=== PATIENT | female | born 1950 | race Caucasian/White ===

== ENCOUNTER 2017-09-29 11:21 | Inpatient (IN) | payer MEDICARE, OTHER ==
[2017-09-29] VITALS (21 sets, daily range): BP systolic 97–127; BP diastolic 49–66
[~2017-09-29] VITALS: Ht 167.6 cm; Wt 56.3 kg
[~2017-09-29 11:21] MED LIST: AMBR5TAB3 PO; ASPI-1265 PO; BECL8.7A7 IH; BUSP10TA11 PO; DULO60CA64 PO; FURO-149 PO; LORA2TAB PO; POTA10TA19 PO; TADA20TA31 PO; UMEC1DIS ID
[2017-09-29] MEDS ORDERED: dexamethasone 4mg tablet PO ONE (11:55)
[2017-09-29] MEDS ORDERED: ipratropium/albuterol 3ml nebule NEB ONE (11:55)
[2017-09-29 12:16] LABS: BASOPHILS % (AUTO) 0 % (0-1); EOSINOPHILS # (AUTO) 0.2 X10'3 (0-0.9); EOSINOPHILS % (AUTO) 1.6 % (0-6); LYMPHOCYTES # (AUTO) 0.8 X10'3 (1.1-4.8); LYMPHOCYTES % (AUTO) 8.5 % (21-51); MEAN CORPUSCULAR HEMOGLOBIN 29.2 PG (27.0-31.0); MEAN CORPUSCULAR HGB CONC 32.7 % (33.0-36.5); MEAN CORPUSCULAR VOLUME 89.4 FL (78-98); MEAN PLATELET VOLUME 7.1 FL (7.4-10.4); MONOCYTES # (AUTO) 0.5 X10'3 (0-0.9); MONOCYTES % (AUTO) 5.5 % (2-12); NEUTROPHILS % (AUTO) 84.4 % (42-75); PLATELET COUNT 243 X10'3 (140-440); RED BLOOD COUNT 1.98 X10'6 (4.20-5.60); RED CELL DISTRIBUTION WIDTH 16.6 % (11.5-14.5); WHITE BLOOD COUNT 9.5 X10'3 (4.5-11.0)
[2017-09-29 12:20] LABS: HEMOGLOBIN 5.8 g/dl (12.0-16.0)
[2017-09-29 12:21] LABS: HEMATOCRIT 17.7 % (35.0-45.0)
[2017-09-29 12:26] LABS: ABG BASE EXCESS -12.3 mmol/L (-2.0-3.0); ABG HCO3 13.3 mmol/L (22.0-26.0); ABG OXYGEN SATURATION 88.4 % (95-98); ABG PCO2 (T) 28.8 mmHg (32.0-45.0); ABG PH (T) 7.281 (7.350-7.450); ABG PO2 (T) 67.8 mmHg (83-108); ALLEN'S TEST Positive; FCOHb 1.3 % (0.5-1.5); FLOW 4 L/min; FMetHb 0.1 % (0.3-1.12); FO2Hb 87.2 % (94-100); TOTAL HEMOGLOBIN 5.9 G/dl (12.0-16.0)
[2017-09-29 12:34] LABS: ALANINE AMINOTRANSFERASE 15 U/L (12-78); ALBUMIN 2.8 G/DL (3.4-5.0); ALBUMIN/GLOBULIN RATIO 0.6 (1.1-1.5); ALKALINE PHOSPHATASE 107 IU/L (46-116); ANION GAP 19 (8-16); ASPARTATE AMINO TRANSFERASE 32 U/L (10-37); BILIRUBIN,TOTAL 1.9 MG/DL (0.1-1.0); BLOOD UREA NITROGEN 96 MG/DL (7-18); BUN/CREATININE RATIO 13.3 (6.6-38.0); CALCIUM 8.3 MG/DL (8.5-10.1); CHLORIDE 104 MMOL/L (99-107); CREATININE 7.24 MG/DL (0.40-0.90); GLUCOSE 143 MG/DL (70-104); SODIUM 138 MMOL/L (135-145); TOTAL CARBON DIOXIDE 15.1 MMOL/L (24-32); TOTAL PROTEIN 7.4 G/DL (6.4-8.2); eGFR 6 ML/MIN
[2017-09-29 12:36] LABS: POTASSIUM 6.1 MMOL/L (3.5-5.1)
[2017-09-29 12:40] LABS: INR 1.1 INR; PROTHROMBIN TIME 11.4 SECONDS (9.0-12.0)
[2017-09-29] MEDS ORDERED: dextrose 50%-water 50ml dispensing syringe IV ONE (12:40)
[2017-09-29] MEDS ORDERED: sodium bicarbonate (0.9mEq/ml) 44.6 mEq/50ml syringe IV ONE (12:40)
[2017-09-29] MEDS ORDERED: calcium chloride 100 MG/1 ML inj IV ONE (12:40)
[2017-09-29] MEDS ORDERED: sodium polystyrene sulfonate 15gm/60ml oral suspension PO ONE (12:40)
[2017-09-29] MEDS ORDERED: furosemide 40mg/4ml inj IV ONE (12:40)
[2017-09-29] MEDS ORDERED: insulin regular, human 10 units/0.1 ml syringe IV ONE (12:40)
[2017-09-29] MEDS ORDERED: acetaminophen 325mg tablet PO PRN ×2 (13:10)
[2017-09-29] MEDS ORDERED: morphine 4 MG/ML inj SYRINge IV PRN ×2 (13:10)
[2017-09-29] MEDS ORDERED: pantoprazole 40 MG vial IV ONE (13:10)
[2017-09-29] MEDS ORDERED: fentaNYL/PF 50MCG/1 ML 2ML syringe ONE (14:31)
[2017-09-29] MEDS ORDERED: MIDAZolam 5mg/ml 2ml vial ONE (14:31)
[2017-09-29] MEDS ORDERED: LIDOcaine Viscous 15ml cup ONE (14:31)
[2017-09-29] MEDS: sodium bicarbonate (8.4%) inj. 150 MEQ in dextrose 5%-water 1,000 ML IV SCH (14:52)
[2017-09-29] MEDS ORDERED: pantoprazole 40MG/NS 100ML BAG 100 ML IV SCH (16:00)
[2017-09-29] MEDS: docusate sod 100mg capsule PO SCH (20:00)
[2017-09-29] MEDS: pantoprazole IV 80 MG in normal saline 100ml IV soln 100 ML IV SCH (20:47)
[2017-09-30] VITALS (26 sets, daily range): BP systolic 100–151; BP diastolic 44–81
[2017-09-30 01:58] LABS: ALKALINE PHOSPHATASE 94 IU/L (46-116); ASPARTATE AMINO TRANSFERASE 17 U/L (10-37); BASOPHILS % (AUTO) 0 % (0-1); EOSINOPHILS % (AUTO) 0 % (0-6); HEMATOCRIT 24.8 % (35.0-45.0); HEMOGLOBIN 8.3 g/dl (12.0-16.0); LYMPHOCYTES # (AUTO) 0.8 X10'3 (1.1-4.8); MEAN CORPUSCULAR HGB CONC 33.3 % (33.0-36.5); MEAN PLATELET VOLUME 7.1 FL (7.4-10.4); MONOCYTES # (AUTO) 0.1 X10'3 (0-0.9); MONOCYTES % (AUTO) 1.2 % (2-12); NEUTROPHILS # (AUTO) 6.9 X10'3 (1.8-7.7); NEUTROPHILS % (AUTO) 88.8 % (42-75); PLATELET COUNT 218 X10'3 (140-440); RED BLOOD COUNT 2.85 X10'6 (4.20-5.60); RED CELL DISTRIBUTION WIDTH 16.4 % (11.5-14.5); WHITE BLOOD COUNT 7.7 X10'3 (4.5-11.0)
[2017-09-30 02:00] LABS: ALANINE AMINOTRANSFERASE 13 U/L (12-78); ALBUMIN 2.5 G/DL (3.4-5.0); ALBUMIN/GLOBULIN RATIO 0.6 (1.1-1.5); ANION GAP 12 (8-16); BILIRUBIN,TOTAL 1.8 MG/DL (0.1-1.0); BLOOD UREA NITROGEN 96 MG/DL (7-18); BUN/CREATININE RATIO 14.3 (6.6-38.0); CALCIUM 8.1 MG/DL (8.5-10.1); CHLORIDE 104 MMOL/L (99-107); GLUCOSE 176 MG/DL (70-104); MAGNESIUM 2.1 MG/DL (1.5-2.4); PHOSPHORUS 8.4 MG/DL (2.3-4.5); POTASSIUM 5.8 MMOL/L (3.5-5.1); SODIUM 135 MMOL/L (135-145); TOTAL CARBON DIOXIDE 18.8 MMOL/L (24-32); TOTAL PROTEIN 6.8 G/DL (6.4-8.2); eGFR 6 ML/MIN
[2017-09-30] MEDS: sodium bicarbonate (8.4%) inj. 150 MEQ in dextrose 5%-water 1,000 ML IV SCH ×2 (02:00→13:48)
[2017-09-30] MEDS: pantoprazole IV 80 MG in normal saline 100ml IV soln 100 ML IV SCH ×2 (02:00→13:48)
[2017-09-30] MEDS: HYDROcodone/acetaminophen 5mg/325mg tablet PO PRN ×3 (03:19→20:40)
[2017-09-30] MEDS: docusate sod 100mg capsule PO SCH ×2 (07:30→20:40)
[2017-09-30 07:32] LABS: OCCULT BLOOD STOOL POSITIVE (Neg)
[2017-09-30] MEDS ORDERED: busPIRone 15mg tablet PO SCH (13:00)
[2017-09-30] MEDS: busPIRone 5mg tablet PO SCH (20:39)
[2017-09-30] MEDS: furosemide 40mg/4ml inj IV SCH (20:40)
[2017-10-01] VITALS (24 sets, daily range): BP systolic 96–127; BP diastolic 43–70
[2017-10-01] MEDS: pantoprazole IV 80 MG in normal saline 100ml IV soln 100 ML IV SCH (00:12)
[2017-10-01] MEDS: sodium bicarbonate (8.4%) inj. 150 MEQ in dextrose 5%-water 1,000 ML IV SCH (01:32)
[2017-10-01] MEDS: HYDROcodone/acetaminophen 5mg/325mg tablet PO PRN ×3 (03:13→15:26)
[2017-10-01 06:26] LABS: BASOPHILS % (AUTO) 0.1 % (0-1); EOSINOPHILS # (AUTO) 0.1 X10'3 (0-0.9); EOSINOPHILS % (AUTO) 1.5 % (0-6); HEMATOCRIT 24.3 % (35.0-45.0); HEMOGLOBIN 8.2 g/dl (12.0-16.0); LYMPHOCYTES # (AUTO) 1.7 X10'3 (1.1-4.8); LYMPHOCYTES % (AUTO) 22.4 % (21-51); MEAN CORPUSCULAR HEMOGLOBIN 28.8 PG (27.0-31.0); MEAN CORPUSCULAR HGB CONC 33.7 % (33.0-36.5); MEAN CORPUSCULAR VOLUME 85.4 FL (78-98); MEAN PLATELET VOLUME 6.9 FL (7.4-10.4); MONOCYTES # (AUTO) 0.5 X10'3 (0-0.9); MONOCYTES % (AUTO) 6.8 % (2-12); NEUTROPHILS # (AUTO) 5.2 X10'3 (1.8-7.7); NEUTROPHILS % (AUTO) 69.2 % (42-75); PLATELET COUNT 202 X10'3 (140-440); RED BLOOD COUNT 2.84 X10'6 (4.20-5.60); RED CELL DISTRIBUTION WIDTH 16.8 % (11.5-14.5); WHITE BLOOD COUNT 7.5 X10'3 (4.5-11.0)
[2017-10-01 07:05] LABS: ALANINE AMINOTRANSFERASE 14 U/L (12-78); ALBUMIN 2.3 G/DL (3.4-5.0); ALBUMIN/GLOBULIN RATIO 0.6 (1.1-1.5); ALKALINE PHOSPHATASE 79 IU/L (46-116); ANION GAP 13 (8-16); ASPARTATE AMINO TRANSFERASE 20 U/L (10-37); BILIRUBIN,TOTAL 1.1 MG/DL (0.1-1.0); BLOOD UREA NITROGEN 83 MG/DL (7-18); BUN/CREATININE RATIO 14.3 (6.6-38.0); CALCIUM 6.9 MG/DL (8.5-10.1); CHLORIDE 100 MMOL/L (99-107); CREATININE 5.82 MG/DL (0.40-0.90); GLUCOSE 89 MG/DL (70-104); MAGNESIUM 1.7 MG/DL (1.5-2.4); PHOSPHORUS 5.9 MG/DL (2.3-4.5); SODIUM 142 MMOL/L (135-145); TOTAL PROTEIN 6.1 G/DL (6.4-8.2); eGFR 7 ML/MIN
[2017-10-01] MEDS: busPIRone 5mg tablet PO SCH ×3 (07:55→20:11)
[2017-10-01] MEDS: docusate sod 100mg capsule PO SCH ×2 (07:55→20:11)
[2017-10-01] MEDS: duloxetine 20mg capsule.DR PO SCH (07:55)
[2017-10-01] MEDS: furosemide 40mg/4ml inj IV SCH ×2 (07:55→20:00)
[2017-10-01] MEDS ORDERED: TADALAFIL PO SCH (08:00)
[2017-10-01] MEDS ORDERED: AMBRISENTAN 5MG TAB PO SCH (08:00)
[2017-10-01] MEDS: ondansetron/PF 4mg/2ml inj IV PRN ×2 (08:52→20:18)
[2017-10-01] MEDS: fluticasone furoate 100MCG/puff inhaler IH SCH (11:01)
[2017-10-01] MEDS: LACTOSE-FREE FOOD 237ML (BOOST) PO SCH ×2 (15:07→18:39)
[2017-10-01] MEDS: AMBRISENTAN 5MG TAB PO SCH (20:11)
[2017-10-01] MEDS: TADALAFIL PO SCH (20:12)
[2017-10-01] MEDS ORDERED: LORazepam 1 MG tablet PO ONE (23:45)
[2017-10-02] VITALS (21 sets, daily range): BP systolic 99–118; BP diastolic 45–73
[2017-10-02 05:35] LABS: BASOPHILS % (AUTO) 0.3 % (0-1); EOSINOPHILS # (AUTO) 0.1 X10'3 (0-0.9); EOSINOPHILS % (AUTO) 1.8 % (0-6); HEMATOCRIT 25.7 % (35.0-45.0); HEMOGLOBIN 8.6 g/dl (12.0-16.0); LYMPHOCYTES % (AUTO) 13.4 % (21-51); MEAN CORPUSCULAR HEMOGLOBIN 28.8 PG (27.0-31.0); MEAN CORPUSCULAR HGB CONC 33.5 % (33.0-36.5); MEAN CORPUSCULAR VOLUME 86.1 FL (78-98); MEAN PLATELET VOLUME 6.5 FL (7.4-10.4); MONOCYTES # (AUTO) 0.5 X10'3 (0-0.9); MONOCYTES % (AUTO) 6.9 % (2-12); NEUTROPHILS # (AUTO) 5.7 X10'3 (1.8-7.7); NEUTROPHILS % (AUTO) 77.6 % (42-75); PLATELET COUNT 187 X10'3 (140-440); RED BLOOD COUNT 2.99 X10'6 (4.20-5.60); RED CELL DISTRIBUTION WIDTH 16.3 % (11.5-14.5); WHITE BLOOD COUNT 7.3 X10'3 (4.5-11.0)
[2017-10-02 05:56] LABS: ALANINE AMINOTRANSFERASE 14 U/L (12-78); ALBUMIN 2.2 G/DL (3.4-5.0); ALBUMIN/GLOBULIN RATIO 0.6 (1.1-1.5); ALKALINE PHOSPHATASE 78 IU/L (46-116); ANION GAP 9 (8-16); ASPARTATE AMINO TRANSFERASE 17 U/L (10-37); BILIRUBIN,TOTAL 0.9 MG/DL (0.1-1.0); BLOOD UREA NITROGEN 77 MG/DL (7-18); BUN/CREATININE RATIO 14.2 (6.6-38.0); CALCIUM 7.1 MG/DL (8.5-10.1); CHLORIDE 99 MMOL/L (99-107); CREATININE 5.44 MG/DL (0.40-0.90); GLUCOSE 94 MG/DL (70-104); MAGNESIUM 1.6 MG/DL (1.5-2.4); PHOSPHORUS 6.8 MG/DL (2.3-4.5); POTASSIUM 4.1 MMOL/L (3.5-5.1); SODIUM 140 MMOL/L (135-145); TOTAL CARBON DIOXIDE 31.9 MMOL/L (24-32); TOTAL PROTEIN 6.2 G/DL (6.4-8.2); eGFR 8 ML/MIN
[2017-10-02] MEDS: duloxetine 20mg capsule.DR PO SCH (07:21)
[2017-10-02] MEDS: furosemide 40mg/4ml inj IV SCH (07:22)
[2017-10-02] MEDS: docusate sod 100mg capsule PO SCH ×2 (07:22→20:53)
[2017-10-02] MEDS: ondansetron/PF 4mg/2ml inj IV PRN (07:30)
[2017-10-02] MEDS ORDERED: LORazepam 2 mg/ml vial IV ONE (07:45)
[2017-10-02] MEDS: fluticasone furoate 100MCG/puff inhaler IH SCH (08:00)
[2017-10-02] MEDS ORDERED: pantoprazole 40 MG vial IV SCH (08:00)
[2017-10-02] MEDS: LACTOSE-FREE FOOD 237ML (BOOST) PO SCH ×3 (08:00→20:58)
[2017-10-02] MEDS: normal saline 1000ml 1,000 ML IV SCH ×2 (08:58→09:50)
[2017-10-02] MEDS: busPIRone 5mg tablet PO SCH ×3 (09:49→20:56)
[2017-10-02 12:49] LABS: CLARITY,URINE Clear (Clear); GLUCOSE, URINE Negative (Neg); KETONES,URINE Negative (Neg); LEUKOCYTE ESTERASE ,URINE Small (Neg); NITRITES, URINE Negative (Neg); OCCULT BLOOD,URINE Large (Neg); PH,URINE 7.5 (4.8-8.0); PROTEIN,URINE 30 mg/dl (Neg); UROBILINOGEN,URINE 0.2 E.U/dL (0.2-1.0)
[2017-10-02 12:50] LABS: UA COLLECTION TYPE FOLEY CATH
[2017-10-02 12:51] LABS: COLOR,URINE DARK YELLOW (Yellow)
[2017-10-02] MEDS: HYDROcodone/acetaminophen 5mg/325mg tablet PO PRN ×2 (13:24→22:29)
[2017-10-02 13:31] LABS: BACTERIA,URINE 1+ /HPF (Neg); RBC,URINE TNTC /HPF (0-2); SQUAMOUS EPITHELIAL CELL,UR NONE SEEN /LPF (FEW); WBC,URINE 0-4 /HPF (0-4)
[2017-10-02 14:11] LABS: UA EOSINOPHILS NO EOS /HPF
[2017-10-02] MEDS: pantoprazole 40mg Tablet.DR PO SCH (20:56)
[2017-10-02] MEDS: TADALAFIL PO SCH (20:56)
[2017-10-02] MEDS: AMBRISENTAN 5MG TAB PO SCH (20:57)
[2017-10-03] MEDS ORDERED: LORazepam 2 mg/ml vial IM ONE (00:10)
[2017-10-03] MEDS ORDERED: LORazepam 2 mg/ml vial IV ONE (00:45)
[2017-10-03 03:00] VITALS: BP 115/54
[2017-10-03 04:21] LABS: BASOPHILS % (AUTO) 0.2 % (0-1); EOSINOPHILS # (AUTO) 0.2 X10'3 (0-0.9); EOSINOPHILS % (AUTO) 2.8 % (0-6); HEMATOCRIT 25.7 % (35.0-45.0); HEMOGLOBIN 8.5 g/dl (12.0-16.0); LYMPHOCYTES % (AUTO) 14.5 % (21-51); MEAN CORPUSCULAR HEMOGLOBIN 28.8 PG (27.0-31.0); MEAN CORPUSCULAR HGB CONC 33.2 % (33.0-36.5); MEAN CORPUSCULAR VOLUME 86.7 FL (78-98); MEAN PLATELET VOLUME 6.9 FL (7.4-10.4); MONOCYTES # (AUTO) 0.5 X10'3 (0-0.9); MONOCYTES % (AUTO) 7.9 % (2-12); NEUTROPHILS % (AUTO) 74.6 % (42-75); PLATELET COUNT 168 X10'3 (140-440); RED BLOOD COUNT 2.96 X10'6 (4.20-5.60); RED CELL DISTRIBUTION WIDTH 16.2 % (11.5-14.5); WHITE BLOOD COUNT 6.7 X10'3 (4.5-11.0)
[2017-10-03 04:50] LABS: ALANINE AMINOTRANSFERASE 14 U/L (12-78); ALBUMIN 2.2 G/DL (3.4-5.0); ALBUMIN/GLOBULIN RATIO 0.6 (1.1-1.5); ALKALINE PHOSPHATASE 82 IU/L (46-116); ANION GAP 11 (8-16); ASPARTATE AMINO TRANSFERASE 17 U/L (10-37); BILIRUBIN,TOTAL 0.8 MG/DL (0.1-1.0); BLOOD UREA NITROGEN 73 MG/DL (7-18); BUN/CREATININE RATIO 14.7 (6.6-38.0); CALCIUM 7.3 MG/DL (8.5-10.1); CHLORIDE 102 MMOL/L (99-107); CREATININE 4.95 MG/DL (0.40-0.90); GLUCOSE 91 MG/DL (70-104); MAGNESIUM 1.5 MG/DL (1.5-2.4); PHOSPHORUS 5.6 MG/DL (2.3-4.5); POTASSIUM 3.8 MMOL/L (3.5-5.1); SODIUM 142 MMOL/L (135-145); TOTAL CARBON DIOXIDE 28.7 MMOL/L (24-32); eGFR 9 ML/MIN
[2017-10-03 06:00] VITALS: BP 111/56
[2017-10-03] MEDS: busPIRone 5mg tablet PO SCH ×3 (08:55→21:39)
[2017-10-03] MEDS: docusate sod 100mg capsule PO SCH ×2 (08:55→21:39)
[2017-10-03] MEDS: pantoprazole 40mg Tablet.DR PO SCH ×2 (08:55→21:40)
[2017-10-03] MEDS: duloxetine 20mg capsule.DR PO SCH (08:56)
[2017-10-03] MEDS: LACTOSE-FREE FOOD 237ML (BOOST) PO SCH ×3 (08:59→21:43)
[2017-10-03] MEDS: HYDROcodone/acetaminophen 5mg/325mg tablet PO PRN ×2 (09:06→13:54)
[2017-10-03 11:00] VITALS: BP 127/64
[2017-10-03] MEDS: normal saline 1000ml 1,000 ML IV SCH (12:20)
[2017-10-03 15:00] VITALS: BP 125/60
[2017-10-03 19:00] VITALS: BP 128/64
[2017-10-03] MEDS: TADALAFIL PO SCH (21:46)
[2017-10-03] MEDS: AMBRISENTAN 5MG TAB PO SCH (21:46)
[2017-10-03] MEDS: LORazepam 1 MG tablet PO SCH (22:12)
[2017-10-03 23:00] VITALS: BP 130/67
[2017-10-04 03:00] VITALS: BP 110/57
[2017-10-04] MEDS: normal saline 1000ml 1,000 ML IV SCH ×2 (04:34→15:27)
[2017-10-04 05:08] LABS: BASOPHILS % (AUTO) 0.3 % (0-1); EOSINOPHILS # (AUTO) 0.3 X10'3 (0-0.9); EOSINOPHILS % (AUTO) 4.5 % (0-6); HEMATOCRIT 25.5 % (35.0-45.0); HEMOGLOBIN 8.6 g/dl (12.0-16.0); LYMPHOCYTES % (AUTO) 12.9 % (21-51); MEAN CORPUSCULAR HGB CONC 33.5 % (33.0-36.5); MEAN CORPUSCULAR VOLUME 86.6 FL (78-98); MONOCYTES # (AUTO) 0.6 X10'3 (0-0.9); MONOCYTES % (AUTO) 7.8 % (2-12); NEUTROPHILS # (AUTO) 5.7 X10'3 (1.8-7.7); NEUTROPHILS % (AUTO) 74.5 % (42-75); PLATELET COUNT 162 X10'3 (140-440); RED BLOOD COUNT 2.95 X10'6 (4.20-5.60); RED CELL DISTRIBUTION WIDTH 16.4 % (11.5-14.5); WHITE BLOOD COUNT 7.7 X10'3 (4.5-11.0)
[2017-10-04 05:37] LABS: ALANINE AMINOTRANSFERASE 10 U/L (12-78); ALBUMIN/GLOBULIN RATIO 0.6 (1.1-1.5); ALKALINE PHOSPHATASE 76 IU/L (46-116); ANION GAP 9 (8-16); ASPARTATE AMINO TRANSFERASE 13 U/L (10-37); BILIRUBIN,TOTAL 0.6 MG/DL (0.1-1.0); BLOOD UREA NITROGEN 63 MG/DL (7-18); CALCIUM 7.5 MG/DL (8.5-10.1); CHLORIDE 106 MMOL/L (99-107); CREATININE 4.19 MG/DL (0.40-0.90); GLUCOSE 89 MG/DL (70-104); MAGNESIUM 1.4 MG/DL (1.5-2.4); PHOSPHORUS 4.6 MG/DL (2.3-4.5); SODIUM 142 MMOL/L (135-145); TOTAL CARBON DIOXIDE 26.6 MMOL/L (24-32); TOTAL PROTEIN 5.6 G/DL (6.4-8.2); eGFR 11 ML/MIN
[2017-10-04 07:00] VITALS: BP 123/66
[2017-10-04] MEDS: docusate sod 100mg capsule PO SCH ×2 (08:10→20:59)
[2017-10-04] MEDS: ondansetron/PF 4mg/2ml inj IV PRN ×2 (08:10→15:28)
[2017-10-04] MEDS: HYDROcodone/acetaminophen 5mg/325mg tablet PO PRN ×3 (08:11→22:09)
[2017-10-04] MEDS: duloxetine 20mg capsule.DR PO SCH (08:11)
[2017-10-04] MEDS: busPIRone 5mg tablet PO SCH ×3 (08:11→21:00)
[2017-10-04] MEDS: pantoprazole 40mg Tablet.DR PO SCH ×2 (08:11→21:00)
[2017-10-04] MEDS: LACTOSE-FREE FOOD 237ML (BOOST) PO SCH ×3 (08:45→18:00)
[2017-10-04 11:00] VITALS: BP 108/55
[2017-10-04 15:00] VITALS: BP 119/61
[2017-10-04] MEDS: nicotine 14mg patch - 24hr TD SCH (17:41)
[2017-10-04] MEDS: fluticasone furoate 100MCG/puff inhaler IH SCH ×2 (17:41→17:42)
[2017-10-04 18:30] VITALS: BP 142/72
[2017-10-04] MEDS: LORazepam 1 MG tablet PO SCH (20:59)
[2017-10-04] MEDS: AMBRISENTAN 5MG TAB PO SCH (21:00)
[2017-10-04] MEDS: TADALAFIL PO SCH (21:09)
[2017-10-04 22:00] VITALS: BP 132/67
[2017-10-05 02:00] VITALS: BP 102/49
[2017-10-05] MEDS: normal saline 1000ml 1,000 ML IV SCH ×2 (04:20→12:46)
[2017-10-05] MEDS: ondansetron/PF 4mg/2ml inj IV PRN (05:09)
[2017-10-05 05:13] LABS: BASOPHILS % (AUTO) 0.3 % (0-1); EOSINOPHILS # (AUTO) 0.4 X10'3 (0-0.9); EOSINOPHILS % (AUTO) 5.7 % (0-6); HEMATOCRIT 26.8 % (35.0-45.0); HEMOGLOBIN 8.8 g/dl (12.0-16.0); LYMPHOCYTES % (AUTO) 14.9 % (21-51); MEAN CORPUSCULAR HEMOGLOBIN 28.6 PG (27.0-31.0); MEAN CORPUSCULAR HGB CONC 32.7 % (33.0-36.5); MEAN CORPUSCULAR VOLUME 87.4 FL (78-98); MEAN PLATELET VOLUME 7.1 FL (7.4-10.4); MONOCYTES # (AUTO) 0.6 X10'3 (0-0.9); MONOCYTES % (AUTO) 8.1 % (2-12); PLATELET COUNT 146 X10'3 (140-440); RED BLOOD COUNT 3.07 X10'6 (4.20-5.60)
[2017-10-05 05:24] LABS: ALANINE AMINOTRANSFERASE 13 U/L (12-78); ALBUMIN/GLOBULIN RATIO 0.5 (1.1-1.5); ALKALINE PHOSPHATASE 82 IU/L (46-116); ANION GAP 9 (8-16); ASPARTATE AMINO TRANSFERASE 14 U/L (10-37); BILIRUBIN,TOTAL 0.5 MG/DL (0.1-1.0); BLOOD UREA NITROGEN 59 MG/DL (7-18); BUN/CREATININE RATIO 15.4 (6.6-38.0); CALCIUM 7.8 MG/DL (8.5-10.1); CHLORIDE 108 MMOL/L (99-107); CREATININE 3.83 MG/DL (0.40-0.90); GLUCOSE 82 MG/DL (70-104); MAGNESIUM 1.2 MG/DL (1.5-2.4); PHOSPHORUS 4.5 MG/DL (2.3-4.5); POTASSIUM 4.3 MMOL/L (3.5-5.1); SODIUM 141 MMOL/L (135-145); TOTAL CARBON DIOXIDE 23.8 MMOL/L (24-32); TOTAL PROTEIN 5.7 G/DL (6.4-8.2); eGFR 12 ML/MIN
[2017-10-05 05:27] LABS: % IRON SATURATION 8 % (11-46); IRON 18 UG/DL (49-151); TOTAL IRON BINDING CAPACITY 217 UG/DL (259-388)
[2017-10-05 05:30] VITALS: BP 110/55
[2017-10-05] MEDS: docusate sod 100mg capsule PO SCH (07:57)
[2017-10-05] MEDS: HYDROcodone/acetaminophen 5mg/325mg tablet PO PRN (07:57)
[2017-10-05] MEDS: pantoprazole 40mg Tablet.DR PO SCH (07:58)
[2017-10-05] MEDS: busPIRone 5mg tablet PO SCH ×2 (07:58→13:17)
[2017-10-05] MEDS: duloxetine 20mg capsule.DR PO SCH (07:58)
[2017-10-05] MEDS: LACTOSE-FREE FOOD 237ML (BOOST) PO SCH ×2 (08:00→13:33)
[2017-10-05] MEDS: nicotine 14mg patch - 24hr TD SCH (08:01)
[2017-10-05] MEDS: fluticasone furoate 100MCG/puff inhaler IH SCH (08:20)
[2017-10-05 11:00] VITALS: BP 128/63
[2017-10-05] MEDS ORDERED: LORazepam 1 MG tablet PO PRN (12:20)
[2017-10-05] MEDS ORDERED: LACT-28 PO (14:32)
[2017-10-05] MEDS ORDERED: HYDR-569 PO (14:32)
[2017-10-05] MEDS ORDERED: PANT40TA4 PO (14:32)
[2017-10-05] MEDS ORDERED: BUSP5TAB26 PO (14:32)
[2017-10-05] MEDS ORDERED: NICO-631 TD (14:32)
[2017-10-05] MEDS ORDERED: ATI1T PO (14:32)
[2017-10-05] MEDS ORDERED: DULO20CA17 PO (14:32)
[2017-10-05] MEDS ORDERED: COL100C PO (14:32)
[2017-10-05] MEDS ORDERED: FLUT100B3 IH (14:32)
[2017-10-05] MEDS ORDERED: IRON-32 PO (14:46)
== END 2017-10-05 16:37 | DRG 682 ==
LOC: ER 11:21 → ED HOLD 13:08 → EDBEDREQ 18:40 → CICU 2S 19:38 → PCU 3S 10-02 17:33
PROVIDERS: ADMIT Internal Medicine Critical Care Medicine; ATTEND Internal Medicine Critical Care Medicine
PROC: 0DJ08ZZ Inspection of Upper Intestinal Tract, Via Natural or Artificial Opening Endoscopic (ICD-10-PCS; principal; 2017-09-29)
PROC: 30233N1 Transfusion of Nonautologous Red Blood Cells into Peripheral Vein, Percutaneous Approach (ICD-10-PCS; 2017-09-29)
DX: N17.9 Acute kidney failure, unspecified (principal); K26.4 Chronic or unspecified duodenal ulcer with hemorrhage; E87.3 Alkalosis; E87.2 Acidosis; I11.0 Hypertensive heart disease with heart failure; I27.20 Pulmonary hypertension, unspecified; I50.9 Heart failure, unspecified; J44.1 Chronic obstructive pulmonary disease with (acute) exacerbation; I82.612 Acute embolism and thrombosis of superficial veins of left upper extremity; I80.8 Phlebitis and thrombophlebitis of other sites; E87.5 Hyperkalemia; J84.10 Pulmonary fibrosis, unspecified; K20.9 Esophagitis, unspecified; R73.9 Hyperglycemia, unspecified; D64.9 Anemia, unspecified; F17.200 Nicotine dependence, unspecified, uncomplicated; F41.9 Anxiety disorder, unspecified; Z96.641 Presence of right artificial hip joint; G89.29 Other chronic pain; M54.5 Low back pain; R06.03 Acute respiratory distress; Z88.0 Allergy status to penicillin; Z79.82 Long term (current) use of aspirin
CPT/HCPCS: 36415; 36600; 71045; 80053; 81001; 82272; 82570; 82803; 82948; 83540; 83550; 83605; 83735; 83935; 84100; 84145; 84300; 84484; 85018; 85025; 85384; 85610; 86885; 86900; 86901; 86920; 87040; 87070; 87207; 87502; 87503; 93005; 93971; 94640; 94760; 97110; 97161; 97530; 99291; A4315; A4620; A6212; A6213; C1758; C9113; G0500; J1815; J1940; J2060; J2250; J2405; J3010; J7030; J8540; P9016

== ENCOUNTER 2018-01-06 12:31 | Inpatient (IN) | payer MEDICARE, BC ==
[~2018-01-06] VITALS: Ht 165.1 cm; Wt 62.9 kg
[2018-01-06] VITALS (7 sets, daily range): BP systolic 112–164; BP diastolic 58–75
[~2018-01-06 12:31] MED LIST changes: -ASPI-1265 PO; +ATI1T PO; +BECL8.7A7; -BECL8.7A7 IH; -BUSP10TA11 PO; +BUSP5TAB26 PO; +DULO20CA17 PO; -DULO60CA64 PO; +ESCI10TA54; +FLUT100B3 IH; -FURO-149 PO; +FURO40TA4; +HYDR-569 PO; -LORA2TAB PO; -POTA10TA19 PO; -UMEC1DIS ID
[2018-01-06] MEDS ORDERED: methylPREDNISolone sod succ 125mg/2ml vial IV ONE (12:45)
[2018-01-06] MEDS ORDERED: ipratropium/albuterol 3ml nebule NEB ONE (12:45)
[2018-01-06 12:51] LABS: ABG BASE EXCESS 5.1 mmol/L (-2.0-3.0); ABG PCO2 (T) 46.9 mmHg (32.0-45.0); ABG PH (T) 7.424 (7.350-7.450); ABG PO2 (T) 92.9 mmHg (83-108); FCOHb 2.7 % (0.5-1.5); FLOW 15 L/min; FMetHb 0.3 % (0.3-1.12); FO2Hb 94.1 % (94-100); RESPIRATORY RATE (OBSERVED) 20 b/min; TOTAL HEMOGLOBIN 7.3 G/dl (12.0-16.0)
[2018-01-06 13:00] LABS: MEAN CORPUSCULAR HEMOGLOBIN 30.4 PG (27.0-31.0); MEAN CORPUSCULAR HGB CONC 32.8 % (33.0-36.5); MEAN CORPUSCULAR VOLUME 92.7 FL (78-98); MEAN PLATELET VOLUME 6.7 FL (7.4-10.4); PLATELET COUNT 246 X10'3 (140-440); RED BLOOD COUNT 2.18 X10'6 (4.20-5.60); RED CELL DISTRIBUTION WIDTH 18.1 % (11.5-14.5); WHITE BLOOD COUNT 6.7 X10'3 (4.5-11.0)
[2018-01-06 13:03] LABS: HEMOGLOBIN 6.6 g/dl (12.0-16.0)
[2018-01-06 13:04] LABS: HEMATOCRIT 20.2 % (35.0-45.0)
[2018-01-06 13:09] LABS: PARTIAL THROMBOPLASTIN TIME 27 SECONDS (22-32); PROTHROMBIN TIME 10.8 SECONDS (9.0-12.0)
[2018-01-06 13:12] LABS: ALANINE AMINOTRANSFERASE 19 U/L (12-78); ALBUMIN 2.4 G/DL (3.4-5.0); ALBUMIN/GLOBULIN RATIO 0.5 (1.1-1.5); ALKALINE PHOSPHATASE 439 IU/L (46-116); ANION GAP 10 (8-16); ASPARTATE AMINO TRANSFERASE 31 U/L (10-37); BILIRUBIN,TOTAL 0.4 MG/DL (0.1-1.0); BLOOD UREA NITROGEN 24 MG/DL (7-18); BUN/CREATININE RATIO 7.7 (6.6-38.0); CALCIUM 8.6 MG/DL (8.5-10.1); CHLORIDE 97 MMOL/L (99-107); GLUCOSE 119 MG/DL (70-104); POTASSIUM 4.6 MMOL/L (3.5-5.1); SODIUM 138 MMOL/L (135-145); TOTAL CARBON DIOXIDE 31.5 MMOL/L (24-32); TOTAL PROTEIN 6.9 G/DL (6.4-8.2); eGFR 15 ML/MIN
[2018-01-06 13:25] LABS: TOTAL CELLS COUNTED 100
[2018-01-06 13:26] LABS: ANISOCYTOSIS 2+; HYPOCHROMASIA 1+; PLATELET ESTIMATE NORMAL; POLYCHROMASIA 1+; STOMATOCYTES 2+
[2018-01-06 13:27] LABS: OCCULT BLOOD STOOL NEGATIVE (Neg)
[2018-01-06] MEDS ORDERED: iohexol 350MG/ML 100ml bottle IV ONE (13:33)
[2018-01-06] MEDS ORDERED: acetaminophen 325mg tablet PO PRN ×2 (14:40)
[2018-01-06] MEDS ORDERED: ondansetron/PF 4mg/2ml inj IV PRN (14:40)
[2018-01-06] MEDS ORDERED: bisacodyl 10mg suppository rectal RC PRN (14:40)
[2018-01-06] MEDS ORDERED: ipratropium/albuterol 3ml nebule NEB PRN (14:40)
[2018-01-06] MEDS ORDERED: ZOLP5TAB8 PO (14:48)
[2018-01-06] MEDS ORDERED: LEVO250T2 PO (14:48)
[2018-01-06] MEDS ORDERED: ONDA4TAB6 PO (14:48)
[2018-01-06] MEDS ORDERED: MAGN64TA10 PO (14:48)
[2018-01-06] MEDS ORDERED: FOLI0.8T19 PO (14:48)
[2018-01-06 18:50] LABS: HEMATOCRIT 22.8 % (35.0-45.0); HEMOGLOBIN 7.6 g/dl (12.0-16.0); MEAN CORPUSCULAR HEMOGLOBIN 30.4 PG (27.0-31.0); MEAN CORPUSCULAR HGB CONC 33.2 % (33.0-36.5); MEAN CORPUSCULAR VOLUME 91.7 FL (78-98); MEAN PLATELET VOLUME 7.4 FL (7.4-10.4); PLATELET COUNT 239 X10'3 (140-440); RED BLOOD COUNT 2.49 X10'6 (4.20-5.60); RED CELL DISTRIBUTION WIDTH 17.1 % (11.5-14.5); WHITE BLOOD COUNT 5.9 X10'3 (4.5-11.0)
[2018-01-06] MEDS: methylPREDNISolone sod succ 125mg/2ml vial IV SCH (20:03)
[2018-01-06] MEDS: docusate sod 100mg capsule PO SCH (20:03)
[2018-01-06] MEDS: HYDROcodone/acetaminophen 5mg/325mg tablet PO PRN (20:22)
[2018-01-06] MEDS: busPIRone 5mg tablet PO SCH (20:23)
[2018-01-06] MEDS: zolpidem 5mg tablet PO SCH (21:00)
[2018-01-06] MEDS: LORazepam 1 MG tablet PO PRN (21:41)
[2018-01-07] MEDS: methylPREDNISolone sod succ 125mg/2ml vial IV SCH ×4 (01:13→21:50)
[2018-01-07 01:33] LABS: ALANINE AMINOTRANSFERASE 21 U/L (12-78); ALBUMIN 2.4 G/DL (3.4-5.0); ALBUMIN/GLOBULIN RATIO 0.5 (1.1-1.5); ALKALINE PHOSPHATASE 408 IU/L (46-116); ANION GAP 7 (8-16); ASPARTATE AMINO TRANSFERASE 25 U/L (10-37); BASOPHILS % (AUTO) 0.3 % (0-1); BILIRUBIN,TOTAL 0.3 MG/DL (0.1-1.0); BLOOD UREA NITROGEN 32 MG/DL (7-18); BUN/CREATININE RATIO 8.4 (6.6-38.0); CALCIUM 8.7 MG/DL (8.5-10.1); CHLORIDE 97 MMOL/L (99-107); EOSINOPHILS % (AUTO) 0.1 % (0-6); GLUCOSE 173 MG/DL (70-104); HEMATOCRIT 23.6 % (35.0-45.0); HEMOGLOBIN 7.7 g/dl (12.0-16.0); LYMPHOCYTES # (AUTO) 1.1 X10'3 (1.1-4.8); LYMPHOCYTES % (AUTO) 18.8 % (21-51); MEAN CORPUSCULAR HEMOGLOBIN 30.8 PG (27.0-31.0); MEAN CORPUSCULAR HGB CONC 32.7 % (33.0-36.5); MEAN PLATELET VOLUME 7.4 FL (7.4-10.4); MONOCYTES # (AUTO) 0.1 X10'3 (0-0.9); MONOCYTES % (AUTO) 1.5 % (2-12); NEUTROPHILS # (AUTO) 4.9 X10'3 (1.8-7.7); NEUTROPHILS % (AUTO) 79.3 % (42-75); PLATELET COUNT 282 X10'3 (140-440); POTASSIUM 5.2 MMOL/L (3.5-5.1); RED BLOOD COUNT 2.51 X10'6 (4.20-5.60); RED CELL DISTRIBUTION WIDTH 16.8 % (11.5-14.5); SODIUM 134 MMOL/L (135-145); TOTAL CARBON DIOXIDE 30.2 MMOL/L (24-32); TOTAL PROTEIN 6.9 G/DL (6.4-8.2); WHITE BLOOD COUNT 6.1 X10'3 (4.5-11.0); eGFR 12 ML/MIN
[2018-01-07 01:37] LABS: MAGNESIUM 2.3 MG/DL (1.5-2.4); PARTIAL THROMBOPLASTIN TIME 21 SECONDS (22-32); PHOSPHORUS 4.2 MG/DL (2.3-4.5); PROTHROMBIN TIME 10.6 SECONDS (9.0-12.0)
[2018-01-07 02:00] VITALS: BP 137/73
[2018-01-07] MEDS: HYDROcodone/acetaminophen 5mg/325mg tablet PO PRN ×2 (05:40→12:53)
[2018-01-07 07:00] VITALS: BP 128/68
[2018-01-07] MEDS: folic acid/vitamin B complex w/vitamin C 0.8mg tablet PO SCH (07:46)
[2018-01-07] MEDS: pantoprazole 40mg Tablet.DR PO SCH (07:46)
[2018-01-07] MEDS: LORazepam 1 MG tablet PO PRN ×2 (07:46→19:47)
[2018-01-07] MEDS: docusate sod 100mg capsule PO SCH ×2 (07:46→19:32)
[2018-01-07] MEDS: busPIRone 5mg tablet PO SCH ×3 (07:47→21:51)
[2018-01-07] MEDS: duloxetine 20mg capsule.DR PO SCH (07:47)
[2018-01-07] MEDS ORDERED: furosemide 10 MG/1 ML 10ml inj IV SCH (09:00)
[2018-01-07] MEDS: ipratropium/albuterol 3ml nebule NEB SCH ×3 (11:57→20:05)
[2018-01-07] MEDS: calcium carbonate 500mg chew tablet PO SCH ×2 (12:52→17:51)
[2018-01-07] MEDS ORDERED: TADA20TA31 PO (14:53)
[2018-01-07] MEDS ORDERED: AMBR5TAB3 PO (14:56)
[2018-01-07] MEDS: diphenhydrAMINE 25mg capsule PO PRN (17:51)
[2018-01-07 19:00] VITALS: BP 129/66
[2018-01-07] MEDS: furosemide 40mg tablet PO SCH (19:32)
[2018-01-07] MEDS: zolpidem 5mg tablet PO SCH (22:29)
[2018-01-07 23:00] VITALS: BP 135/75
[2018-01-08] MEDS: HYDROcodone/acetaminophen 5mg/325mg tablet PO PRN ×4 (02:08→17:38)
[2018-01-08] MEDS: ipratropium/albuterol 3ml nebule NEB SCH ×4 (02:54→22:11)
[2018-01-08 03:00] VITALS: BP 127/83
[2018-01-08] MEDS: LORazepam 1 MG tablet PO PRN ×2 (04:32→14:57)
[2018-01-08] MEDS: methylPREDNISolone sod succ 125mg/2ml vial IV SCH ×2 (04:33→10:00)
[2018-01-08 05:23] LABS: BASOPHILS % (AUTO) 0.1 % (0-1); EOSINOPHILS % (AUTO) 0 % (0-6); HEMOGLOBIN 7.1 g/dl (12.0-16.0); LYMPHOCYTES # (AUTO) 1.2 X10'3 (1.1-4.8); LYMPHOCYTES % (AUTO) 14.6 % (21-51); MEAN CORPUSCULAR HEMOGLOBIN 30.3 PG (27.0-31.0); MEAN CORPUSCULAR HGB CONC 32.6 % (33.0-36.5); MEAN CORPUSCULAR VOLUME 92.8 FL (78-98); MEAN PLATELET VOLUME 7.1 FL (7.4-10.4); MONOCYTES # (AUTO) 0.3 X10'3 (0-0.9); MONOCYTES % (AUTO) 3.1 % (2-12); NEUTROPHILS # (AUTO) 6.8 X10'3 (1.8-7.7); NEUTROPHILS % (AUTO) 82.2 % (42-75); PLATELET COUNT 279 X10'3 (140-440); RED BLOOD COUNT 2.33 X10'6 (4.20-5.60); RED CELL DISTRIBUTION WIDTH 17.8 % (11.5-14.5); WHITE BLOOD COUNT 8.3 X10'3 (4.5-11.0)
[2018-01-08 05:40] LABS: PARTIAL THROMBOPLASTIN TIME 25 SECONDS (22-32); PROTHROMBIN TIME 10.8 SECONDS (9.0-12.0)
[2018-01-08 05:43] LABS: HEMATOCRIT 21.7 % (35.0-45.0)
[2018-01-08 05:47] LABS: ALANINE AMINOTRANSFERASE 21 U/L (12-78); ALBUMIN 2.6 G/DL (3.4-5.0); ALBUMIN/GLOBULIN RATIO 0.6 (1.1-1.5); ALKALINE PHOSPHATASE 383 IU/L (46-116); ANION GAP 11 (8-16); ASPARTATE AMINO TRANSFERASE 25 U/L (10-37); BILIRUBIN,TOTAL 0.5 MG/DL (0.1-1.0); BLOOD UREA NITROGEN 53 MG/DL (7-18); BUN/CREATININE RATIO 11.5 (6.6-38.0); CHLORIDE 92 MMOL/L (99-107); GLUCOSE 145 MG/DL (70-104); MAGNESIUM 2.2 MG/DL (1.5-2.4); PHOSPHORUS 4.5 MG/DL (2.3-4.5); POTASSIUM 5.2 MMOL/L (3.5-5.1); SODIUM 130 MMOL/L (135-145); TOTAL PROTEIN 6.9 G/DL (6.4-8.2); eGFR 9 ML/MIN
[2018-01-08 06:00] VITALS: BP 161/93
[2018-01-08] MEDS ORDERED: TADALAFIL 20 MG PO SCH (08:00)
[2018-01-08] MEDS: ADCIRCA 20 MG PO SCH (08:00)
[2018-01-08] MEDS: LETAIRIS 5 MG PO SCH (08:00)
[2018-01-08] MEDS ORDERED: AMBRISENTAN 5 MG PO SCH (08:00)
[2018-01-08] MEDS: folic acid/vitamin B complex w/vitamin C 0.8mg tablet PO SCH (08:29)
[2018-01-08] MEDS: calcium carbonate 500mg chew tablet PO SCH ×3 (08:29→17:38)
[2018-01-08] MEDS: busPIRone 5mg tablet PO SCH ×3 (08:30→22:07)
[2018-01-08] MEDS: docusate sod 100mg capsule PO SCH ×2 (08:30→19:34)
[2018-01-08] MEDS: furosemide 40mg tablet PO SCH ×2 (08:30→19:34)
[2018-01-08] MEDS: pantoprazole 40mg Tablet.DR PO SCH (08:30)
[2018-01-08] MEDS: duloxetine 20mg capsule.DR PO SCH (08:30)
[2018-01-08 11:00] VITALS: BP 140/77
[2018-01-08] MEDS: diphenhydrAMINE 25mg capsule PO PRN ×2 (11:43→22:39)
[2018-01-08 15:00] VITALS: BP 136/78
[2018-01-08 19:00] VITALS: BP 131/68
[2018-01-08] MEDS: zolpidem 5mg tablet PO SCH (22:07)
[2018-01-08 23:00] VITALS: BP 123/75
[2018-01-08 23:42] LABS: TOTAL VOLUME 24HRS,URINE 600 ML
[2018-01-09] VITALS (12 sets, daily range): BP systolic 124–148; BP diastolic 71–86
[2018-01-09] MEDS: LORazepam 1 MG tablet PO PRN ×3 (02:03→21:16)
[2018-01-09] MEDS: ipratropium/albuterol 3ml nebule NEB SCH ×4 (03:34→20:07)
[2018-01-09 05:12] LABS: BASOPHILS % (AUTO) 0.2 % (0-1); EOSINOPHILS # (AUTO) 0.1 X10'3 (0-0.9); EOSINOPHILS % (AUTO) 1.3 % (0-6); HEMOGLOBIN 7.4 g/dl (12.0-16.0); LYMPHOCYTES # (AUTO) 2.7 X10'3 (1.1-4.8); LYMPHOCYTES % (AUTO) 25.5 % (21-51); MEAN CORPUSCULAR HEMOGLOBIN 30.9 PG (27.0-31.0); MEAN CORPUSCULAR HGB CONC 33.5 % (33.0-36.5); MEAN CORPUSCULAR VOLUME 92.1 FL (78-98); MEAN PLATELET VOLUME 6.6 FL (7.4-10.4); MONOCYTES # (AUTO) 0.8 X10'3 (0-0.9); MONOCYTES % (AUTO) 7.6 % (2-12); NEUTROPHILS % (AUTO) 65.4 % (42-75); PLATELET COUNT 280 X10'3 (140-440); RED BLOOD COUNT 2.38 X10'6 (4.20-5.60); RED CELL DISTRIBUTION WIDTH 17.2 % (11.5-14.5); WHITE BLOOD COUNT 10.8 X10'3 (4.5-11.0)
[2018-01-09 05:31] LABS: INR 1.1 INR; PARTIAL THROMBOPLASTIN TIME 25 SECONDS (22-32)
[2018-01-09 05:35] LABS: HEMATOCRIT 21.9 % (35.0-45.0)
[2018-01-09 05:49] LABS: ALANINE AMINOTRANSFERASE 22 U/L (12-78); ALBUMIN 2.5 G/DL (3.4-5.0); ALBUMIN/GLOBULIN RATIO 0.6 (1.1-1.5); ALKALINE PHOSPHATASE 349 IU/L (46-116); ANION GAP 9 (8-16); ASPARTATE AMINO TRANSFERASE 29 U/L (10-37); BILIRUBIN,TOTAL 0.4 MG/DL (0.1-1.0); BLOOD UREA NITROGEN 62 MG/DL (7-18); CALCIUM 7.8 MG/DL (8.5-10.1); CHLORIDE 92 MMOL/L (99-107); CREATININE 4.76 MG/DL (0.40-0.90); GLUCOSE 82 MG/DL (70-104); MAGNESIUM 2.1 MG/DL (1.5-2.4); PHOSPHORUS 3.7 MG/DL (2.3-4.5); POTASSIUM 4.8 MMOL/L (3.5-5.1); SODIUM 129 MMOL/L (135-145); TOTAL CARBON DIOXIDE 28.1 MMOL/L (24-32); TOTAL PROTEIN 6.5 G/DL (6.4-8.2); eGFR 9 ML/MIN
[2018-01-09] MEDS: HYDROcodone/acetaminophen 5mg/325mg tablet PO PRN ×3 (06:27→20:05)
[2018-01-09] MEDS: ADCIRCA 20 MG PO SCH (08:00)
[2018-01-09] MEDS: LETAIRIS 5 MG PO SCH (08:00)
[2018-01-09] MEDS: pantoprazole 40mg Tablet.DR PO SCH (08:09)
[2018-01-09] MEDS: calcium carbonate 500mg chew tablet PO SCH ×3 (08:09→17:26)
[2018-01-09] MEDS: busPIRone 5mg tablet PO SCH ×3 (08:09→21:15)
[2018-01-09] MEDS: duloxetine 20mg capsule.DR PO SCH (08:10)
[2018-01-09] MEDS: folic acid/vitamin B complex w/vitamin C 0.8mg tablet PO SCH (08:11)
[2018-01-09] MEDS: furosemide 40mg tablet PO SCH ×2 (08:11→20:05)
[2018-01-09] MEDS: docusate sod 100mg capsule PO SCH ×2 (08:12→20:05)
[2018-01-09] MEDS ORDERED: docusate sodium 100mg/10ml UD cup PO SCH (08:54)
[2018-01-09] MEDS: diphenhydrAMINE 25mg capsule PO PRN (09:21)
[2018-01-09] MEDS ORDERED: normal saline 1000ml 250 ML IV PRN (09:36)
[2018-01-09] MEDS ORDERED: heparin 1,000 units/ml 10ml inj HE ONE ×2 (09:40)
[2018-01-09] MEDS ORDERED: epoetin 20,000 units/ml inj IV ONE (09:40)
[2018-01-09] MEDS: zolpidem 5mg tablet PO SCH (21:56)
[2018-01-10] MEDS: ipratropium/albuterol 3ml nebule NEB SCH ×3 (02:45→14:00)
[2018-01-10 03:00] VITALS: BP 146/84
[2018-01-10] MEDS: HYDROcodone/acetaminophen 5mg/325mg tablet PO PRN ×2 (04:34→09:43)
[2018-01-10 05:10] LABS: BASOPHILS % (AUTO) 0.1 % (0-1); EOSINOPHILS % (AUTO) 0.3 % (0-6); HEMATOCRIT 33.6 % (35.0-45.0); HEMOGLOBIN 11.2 g/dl (12.0-16.0); LYMPHOCYTES # (AUTO) 2.2 X10'3 (1.1-4.8); LYMPHOCYTES % (AUTO) 24.4 % (21-51); MEAN CORPUSCULAR HGB CONC 33.4 % (33.0-36.5); MEAN CORPUSCULAR VOLUME 92.7 FL (78-98); MEAN PLATELET VOLUME 6.6 FL (7.4-10.4); MONOCYTES # (AUTO) 0.7 X10'3 (0-0.9); MONOCYTES % (AUTO) 7.3 % (2-12); NEUTROPHILS # (AUTO) 6.2 X10'3 (1.8-7.7); NEUTROPHILS % (AUTO) 67.9 % (42-75); PLATELET COUNT 248 X10'3 (140-440); RED BLOOD COUNT 3.62 X10'6 (4.20-5.60); RED CELL DISTRIBUTION WIDTH 17.1 % (11.5-14.5); WHITE BLOOD COUNT 9.1 X10'3 (4.5-11.0)
[2018-01-10 05:15] LABS: PROTHROMBIN TIME 10.8 SECONDS (9.0-12.0)
[2018-01-10 05:30] VITALS: BP 127/72
[2018-01-10 05:31] LABS: ALANINE AMINOTRANSFERASE 25 U/L (12-78); ALBUMIN 2.7 G/DL (3.4-5.0); ALBUMIN/GLOBULIN RATIO 0.6 (1.1-1.5); ALKALINE PHOSPHATASE 370 IU/L (46-116); ANION GAP 7 (8-16); ASPARTATE AMINO TRANSFERASE 38 U/L (10-37); BILIRUBIN,TOTAL 0.5 MG/DL (0.1-1.0); BLOOD UREA NITROGEN 37 MG/DL (7-18); BUN/CREATININE RATIO 12.5 (6.6-38.0); CHLORIDE 97 MMOL/L (99-107); CREATININE 2.95 MG/DL (0.40-0.90); GLUCOSE 83 MG/DL (70-104); PHOSPHORUS 2.8 MG/DL (2.3-4.5); POTASSIUM 3.8 MMOL/L (3.5-5.1); SODIUM 134 MMOL/L (135-145); TOTAL PROTEIN 7.1 G/DL (6.4-8.2); eGFR 16 ML/MIN
[2018-01-10] MEDS: docusate sod 100mg capsule PO SCH (07:35)
[2018-01-10] MEDS: duloxetine 20mg capsule.DR PO SCH (07:35)
[2018-01-10] MEDS: folic acid/vitamin B complex w/vitamin C 0.8mg tablet PO SCH (07:35)
[2018-01-10] MEDS: pantoprazole 40mg Tablet.DR PO SCH (07:35)
[2018-01-10] MEDS: furosemide 40mg tablet PO SCH (07:35)
[2018-01-10] MEDS: busPIRone 5mg tablet PO SCH ×2 (07:36→13:00)
[2018-01-10] MEDS: calcium carbonate 500mg chew tablet PO SCH ×2 (07:42→12:00)
[2018-01-10] MEDS: LETAIRIS 5 MG PO SCH (08:00)
[2018-01-10] MEDS: ADCIRCA 20 MG PO SCH (08:00)
[2018-01-10 11:00] VITALS: BP 135/74
[2018-01-10] MEDS: diphenhydrAMINE 25mg capsule PO PRN (12:00)
[2018-01-10] MEDS: LORazepam 1 MG tablet PO PRN (12:00)
== END 2018-01-10 15:05 | disposition home or self-care (01) | DRG 291 ==
LOC: ER 12:31 → ED HOLD 14:39 → EDBEDREQ 15:27 → PCU 3S 16:10
PROVIDERS: ATTEND Internal Medicine Critical Care Medicine
PROC: 30233N1 Transfusion of Nonautologous Red Blood Cells into Peripheral Vein, Percutaneous Approach (ICD-10-PCS; principal; 2018-01-06)
PROC: B32T1ZZ Computerized Tomography (CT Scan) of Left Pulmonary Artery using Low Osmolar Contrast (ICD-10-PCS; 2018-01-06)
PROC: B3201ZZ Computerized Tomography (CT Scan) of Thoracic Aorta using Low Osmolar Contrast (ICD-10-PCS; 2018-01-06)
PROC: B32S1ZZ Computerized Tomography (CT Scan) of Right Pulmonary Artery using Low Osmolar Contrast (ICD-10-PCS; 2018-01-06)
PROC: 5A1D70Z Performance of Urinary Filtration, Intermittent, Less than 6 Hours Per Day (ICD-10-PCS; 2018-01-09)
DX: I13.2 Hypertensive heart and chronic kidney disease with heart failure and with stage 5 chronic kidney disease, or end stage renal disease (principal); J96.01 Acute respiratory failure with hypoxia; N18.6 End stage renal disease; J44.1 Chronic obstructive pulmonary disease with (acute) exacerbation; D62 Acute posthemorrhagic anemia; J84.10 Pulmonary fibrosis, unspecified; I27.20 Pulmonary hypertension, unspecified; I50.9 Heart failure, unspecified; D63.1 Anemia in chronic kidney disease; F41.9 Anxiety disorder, unspecified; E83.59 Other disorders of calcium metabolism; F17.210 Nicotine dependence, cigarettes, uncomplicated; Z90.710 Acquired absence of both cervix and uterus; Z99.81 Dependence on supplemental oxygen; Z99.2 Dependence on renal dialysis; Z88.0 Allergy status to penicillin; Z88.8 Allergy status to other drugs, medicaments and biological substances; Z87.11 Personal history of peptic ulcer disease; Z80.9 Family history of malignant neoplasm, unspecified; Z82.3 Family history of stroke; Z82.49 Family history of ischemic heart disease and other diseases of the circulatory system
CPT/HCPCS: 36415; 36600; 71045; 71275; 80053; 82272; 82570; 82803; 82948; 83735; 84100; 84156; 84484; 85018; 85025; 85027; 85610; 85730; 86885; 86900; 86901; 86920; 87070; 90935; 93005; 94640; 94760; 96374; 99291; A6212; A6213; A6257; G0257; J0885; J1644; J2930; J7030; P9016; Q0163; Q9967

== ENCOUNTER 2018-03-14 22:54 | Emergency (ER) | payer MEDICARE, OTHER ==
[~2018-03-14] VITALS: Ht 165.1 cm; Wt 55.0 kg
[~2018-03-14 22:54] MED LIST changes: -BECL8.7A7; -ESCI10TA54; -FLUT100B3 IH; +FOLI0.8T19 PO; -FURO40TA4; +LEVO250T2 PO; +MAGN64TA10 PO; +ONDA4TAB6 PO; +ZOLP5TAB8 PO
[2018-03-15 01:10] LABS: BASOPHILS # (AUTO) 0.1 X10'3 (0-0.2); BASOPHILS % (AUTO) 0.7 % (0-1); EOSINOPHILS # (AUTO) 0.1 X10'3 (0-0.9); EOSINOPHILS % (AUTO) 1.5 % (0-6); HEMOGLOBIN 12.4 g/dl (12.0-16.0); LYMPHOCYTES # (AUTO) 2.3 X10'3 (1.1-4.8); LYMPHOCYTES % (AUTO) 29.8 % (21-51); MEAN CORPUSCULAR HEMOGLOBIN 31.6 PG (27.0-31.0); MEAN CORPUSCULAR HGB CONC 31.9 % (33.0-36.5); MEAN CORPUSCULAR VOLUME 99.1 FL (78-98); MEAN PLATELET VOLUME 7.4 FL (7.4-10.4); MONOCYTES # (AUTO) 0.4 X10'3 (0-0.9); MONOCYTES % (AUTO) 5.3 % (2-12); NEUTROPHILS % (AUTO) 62.7 % (42-75); PLATELET COUNT 211 X10'3 (140-440); RED BLOOD COUNT 3.94 X10'6 (4.20-5.60); WHITE BLOOD COUNT 7.9 X10'3 (4.5-11.0)
[2018-03-15 01:25] LABS: ALANINE AMINOTRANSFERASE 19 U/L (12-78); ALBUMIN 2.7 G/DL (3.4-5.0); ALBUMIN/GLOBULIN RATIO 0.6 (1.1-1.5); ALKALINE PHOSPHATASE 339 IU/L (46-116); ANION GAP 7 (8-16); ASPARTATE AMINO TRANSFERASE 30 U/L (10-37); BILIRUBIN,TOTAL 0.4 MG/DL (0.1-1.0); BLOOD UREA NITROGEN 46 MG/DL (7-18); BUN/CREATININE RATIO 11.5 (6.6-38.0); CALCIUM 8.7 MG/DL (8.5-10.1); CHLORIDE 100 MMOL/L (99-107); CREATININE 3.99 MG/DL (0.40-0.90); GLUCOSE 111 MG/DL (70-104); PHOSPHORUS 2.3 MG/DL (2.3-4.5); POTASSIUM 5.8 MMOL/L (3.5-5.1); SODIUM 139 MMOL/L (135-145); TOTAL CARBON DIOXIDE 31.7 MMOL/L (24-32); TOTAL PROTEIN 7.4 G/DL (6.4-8.2); eGFR 11 ML/MIN
[2018-03-15 01:45] VITALS: BP 140/82
[2018-03-15 02:08] LABS: CLARITY,URINE CLOUDY (Clear); COLOR,URINE BROWN (Yellow)
[2018-03-15 02:32] LABS: UA COLLECTION TYPE CLN CATCH MIDSTREAM
[2018-03-15 02:37] LABS: BACTERIA,URINE FEW /HPF (Neg); RBC,URINE TNTC /HPF (0-2); SQUAMOUS EPITHELIAL CELL,UR MODERATE /LPF (FEW); WBC,URINE 0-4 /HPF (0-4)
== END 2018-03-15 03:05 | disposition home or self-care (01) ==
LOC: ER 22:55
DX: I13.0 Hypertensive heart and chronic kidney disease with heart failure and stage 1 through stage 4 chronic kidney disease, or unspecified chronic kidney disease (principal); N18.9 Chronic kidney disease, unspecified; I50.9 Heart failure, unspecified; R07.89 Other chest pain; R41.0 Disorientation, unspecified; K27.9 Peptic ulcer, site unspecified, unspecified as acute or chronic, without hemorrhage or perforation; J44.9 Chronic obstructive pulmonary disease, unspecified; D64.9 Anemia, unspecified; F41.9 Anxiety disorder, unspecified; Z88.0 Allergy status to penicillin; Z98.890 Other specified postprocedural states; Z88.8 Allergy status to other drugs, medicaments and biological substances
CPT/HCPCS: 36415; 71045; 80053; 81001; 83735; 84100; 85025; 99285

== ENCOUNTER 2018-07-09 11:09 | Emergency (ER) | payer MEDICARE, OTHER ==
[~2018-07-09] VITALS: Ht 165.1 cm; Wt 45.4 kg
[~2018-07-09 11:09] MED LIST changes: +HYDR-4383 PO; -HYDR-569 PO
[2018-07-09] MEDS ORDERED: normal saline 1000ML IV soln IVB ONE (12:20)
[2018-07-09 12:39] LABS: CLARITY,URINE BLOODY (Clear); COLOR,URINE RED (Yellow); UA COLLECTION TYPE CLN CATCH MIDSTREAM
[2018-07-09 12:52] LABS: SQUAMOUS EPITHELIAL CELL,UR MODERATE /LPF (FEW)
[2018-07-09 12:53] LABS: BACTERIA,URINE NONE SEEN /HPF (Neg); MUCUS STRANDS NONE SEEN /LPF (Neg); RBC,URINE TNTC /HPF (0-2); TRANSITIONAL EPI CELLS,URINE FEW /HPF; WBC,URINE 0-4 /HPF (0-4)
[2018-07-09 13:04] LABS: BASOPHILS # (AUTO) 0.1 X10'3 (0-0.2); EOSINOPHILS % (AUTO) 0.4 % (0-6); HEMOGLOBIN 13.6 g/dl (12.0-16.0); LYMPHOCYTES # (AUTO) 1.9 X10'3 (1.1-4.8); LYMPHOCYTES % (AUTO) 23.1 % (21-51); MEAN CORPUSCULAR HEMOGLOBIN 34.8 PG (27.0-31.0); MEAN CORPUSCULAR HGB CONC 30.8 % (33.0-36.5); MEAN CORPUSCULAR VOLUME 113.1 FL (78-98); MEAN PLATELET VOLUME 7.9 FL (7.4-10.4); MONOCYTES # (AUTO) 0.6 X10'3 (0-0.9); NEUTROPHILS # (AUTO) 5.7 X10'3 (1.8-7.7); NEUTROPHILS % (AUTO) 68.5 % (42-75); PLATELET COUNT 289 X10'3 (140-440); RED BLOOD COUNT 3.89 X10'6 (4.20-5.60); RED CELL DISTRIBUTION WIDTH 14.8 % (11.5-14.5); WHITE BLOOD COUNT 8.3 X10'3 (4.5-11.0)
[2018-07-09] MEDS ORDERED: morphine 4 MG/ML inj SYRINge IV ONE (13:10)
[2018-07-09 13:30] VITALS: BP 130/91
[2018-07-09 13:31] LABS: ALANINE AMINOTRANSFERASE 78 U/L (12-78); ALBUMIN 2.8 G/DL (3.4-5.0); ALBUMIN/GLOBULIN RATIO 0.5 (1.1-1.5); ANION GAP 11 (8-16); ASPARTATE AMINO TRANSFERASE 64 U/L (10-37); BILIRUBIN,TOTAL 0.4 MG/DL (0.1-1.0); BLOOD UREA NITROGEN 45 MG/DL (7-18); BUN/CREATININE RATIO 14.4 (6.6-38.0); CALCIUM 9.6 MG/DL (8.5-10.1); CHLORIDE 94 MMOL/L (99-107); CREATININE 3.12 MG/DL (0.40-0.90); GLUCOSE 124 MG/DL (70-104); SODIUM 135 MMOL/L (135-145); TOTAL CARBON DIOXIDE 29.9 MMOL/L (24-32); TOTAL PROTEIN 8.4 G/DL (6.4-8.2); eGFR 15 ML/MIN
[2018-07-09 13:38] LABS: ALKALINE PHOSPHATASE 1081 IU/L (46-116); POTASSIUM 6.2 MMOL/L (3.5-5.1)
[2018-07-09 13:40] LABS: INR 1.1 INR; PROTHROMBIN TIME 10.7 SECONDS (9.0-12.0)
--- NOTE | 2018-07-09 13:40 | NUR ---
RELIEVING RN FOR LUNCH, PT HAS CRITICAL HIGH K+ 6.2, MD AWARE, MEDICATED FOR PAIN TO LEFT LOWER BACK S/P FALL
[2018-07-09] MEDS ORDERED: CEPH-571 PO (13:54)
== END 2018-07-09 14:28 | disposition home or self-care (01) ==
LOC: ER 11:09
DX: S00.03XA Contusion of scalp, initial encounter (principal); R31.0 Gross hematuria; I13.2 Hypertensive heart and chronic kidney disease with heart failure and with stage 5 chronic kidney disease, or end stage renal disease; N18.6 End stage renal disease; I50.9 Heart failure, unspecified; J44.9 Chronic obstructive pulmonary disease, unspecified; Z99.2 Dependence on renal dialysis; Z87.11 Personal history of peptic ulcer disease; Z98.890 Other specified postprocedural states; Z88.0 Allergy status to penicillin; Z88.8 Allergy status to other drugs, medicaments and biological substances; Z79.899 Other long term (current) drug therapy; W01.198A Fall on same level from slipping, tripping and stumbling with subsequent striking against other object, initial encounter; Y93.89 Activity, other specified; Y92.89 Other specified places as the place of occurrence of the external cause; Y99.9 Unspecified external cause status
CPT/HCPCS: 36415; 70450; 71045; 72125; 74176; 80053; 81001; 85025; 85610; 93005; 96374; 99284; J2270; J7030